=== PATIENT | male | born 1995 | race Caucasian/White ===

== ENCOUNTER 2021-02-12 21:07 | Inpatient (IN) | payer OTHER, SELFPAY ==
[2021-02-12] VITALS (9 sets, daily range): BP systolic 98–128; BP diastolic 80–97; PULSE 60–161; RESP 15–23; O2SAT 89–100
--- NOTE | ~2021-02-12 | XR_ITS ---
XR chest 1V portable 02/12/2021 22:50 Indication: Respiratory failure. History of muscular dystrophy Procedure: AP portable chest Comparison: No prior studies for comparison. Findings: Shallow inspiration. Diffuse bilateral airspace disease. Moderate gastric distention. Small left pleural effusion. No pneumothorax. No acute osseous abnormality. Impression: 1: Diffuse bilateral airspace disease which may represent edema or pneumonia. Reviewed, dictated and finalized at location A. Impression: 1: Diffuse bilateral airspace disease which may represent edema or pneumonia.
--- NOTE | ~2021-02-12 | XR_ITS ---
XR chest port-a-cath/central 02/12/2021 23:48 Indication: Central line placement Procedure: AP portable chest Comparison: 02/12/2021 Findings: There is gastric distention. Elevated left diaphragm. Right IJ central line tip in the SVC. Diffuse bilateral airspace disease. No pneumothorax. No acute osseous abnormality. Impression: 1: Diffuse bilateral airspace disease which may represent edema or pneumonia. Reviewed, dictated and finalized at location A. Impression: 1: Diffuse bilateral airspace disease which may represent edema or pneumonia.
--- NOTE | 2021-02-12 21:27 | ECG_ITS ---
Measurements Intervals [place] Rate: 117 P: [place]: 0 QRS: 26 QRSD: 172 T: 194 QT: 357 QTc: 500 Interpretive Statements ATRIAL FIBRILLATION WITH RAPID VENTRICULAR RESPONSE LEFT BUNDLE BRANCH BLOCK BASELINE ARTIFACT- III, AVF, V1-V3 ABNORMAL ECG Electronically Signed On 02-13-2021 6:40:23 CDT by Stewart Frye D.O.
--- NOTE | 2021-02-12 21:33 | PC.NURSE ---
pt being paced by dr sylvester. pt more alert, able to answer questions. now on 4l NC
[2021-02-12 21:43] LABS: Hematocrit 45.2 % (42.0-52.0); Hemoglobin 13.4 g/dL (14.0-18.0); Mean Corpuscular HGB Conc 29.6 g/dl (32-36); Mean Corpuscular Volume 101.1 fl (80-100); Platelet Count Result 370 k/mm3 (150-375); Red Blood Count 4.47 M/mm3 (4.6-6.20); Red Cell Distribution Width 14.2 % (11.5-14.5); White Blood Count 12.3 K/mm3 (4.5-10.0)
--- NOTE | 2021-02-12 21:47 | ED.ARRPALP ---
HPI - Arrhythmia/Palpitations General Chief Complaint: Arrhythmia/Palpitations Stated Complaint: syncope History of Present Illness HPI narrative: 25 yo male w/ h/o muscular dysthrophy brought in by EMS in severe distress. His father was lifting him hup when he became pale and unresponsive. Per EMS venricular rate of 30. They began assisting with ventilation and his mental status improved. History limited by clinical condition. He gets all of his care at [place]. His radiology aide is Dr. Dodd Related Data Home Medications Medication Instructions Recorded Confirmed carvedilol 6.25 mg PO BID 02/12/21 02/12/21 lisinopril 10 mg PO DAILY 02/12/21 02/12/21 prednisone 150 mg PO 2XW 02/12/21 02/12/21 cholecalciferol (vitamin D3) 5,000 unit PO DAILY 02/13/21 02/13/21 [Dialyvite Vitamin D] Allergies Allergy/AdvReac Type Severity Reaction Status Date / Time Penicillins Allergy Mild Unknown Verified 02/12/21 23:27 amoxicillin Allergy Unknown Verified 02/12/21 23:27 clavulanic acid Allergy Unknown Verified 02/12/21 23:27 [From Augmentin] latex Allergy Hives Verified 02/13/21 01:22 metoprolol Allergy Unknown Verified 02/13/21 01:06 Sulfa (Sulfonamide Allergy Unknown Verified 02/12/21 23:27 Antibiotics) Review of Systems Review of Systems: ROS unobtainable: Yes unobtainable due to medical condition PMFSH Past Medical History Medical History (Updated 02/13/21 @ 00:32 by Mark Cardenas MD) Duchenne muscular dystrophy Family History Family History (Updated 02/13/21 @ 00:02 by Mark Cardenas MD) Other Muscular dystrophy Social History Social History (Updated 02/13/21 @ 00:03 by Mark Cardenas MD) Smoking status: Never smoker Alcohol intake: never Substance use: never Living arrangements: with family Gender identity (if verbalized by the patient): Male Exam Const: Nutritional Appearance: obese Other: severe distress. lethargic HENMT: Head: normal to inspection Eyes: Pupils: Equal, round and reactive pupils present Neck: Neck: normal visual inspection Resp: Other: Poor respiratory effort. CTA bilaterally Cardio: Other: No palpable pulses. GI: GI Palp: Yes Soft to palpation Skin: General skin exam: pallor Neuro: Other: responds to voice. Course Vital Signs Vital signs: Vital Signs Respiratory Rate 20 02/12/21 21:04 Blood Pressure 128/90 02/12/21 21:04 Pulse Oximetry 89 L 02/12/21 21:04 Temperature 36.6 C 02/13/21 01:23 Pulse Rate 89 02/13/21 01:23 Respiratory Rate 18 02/13/21 01:23 Blood Pressure 118/94 H 02/13/21 01:23 Pulse Oximetry 97 02/13/21 01:23 Procedures Central Line Placement Right IJ: Central Line Date: 02/13/21 Discussed w/ the patient/family/POA,the placement of a central venous catheter, including its clinical necessity/indication & associated potential risks, benifits and alternatives.: Yes The patient/family/POA understand(s) and acknowledge(s) the need to proceed with central venous catheter insertion as an important element of the patient's clinical management.: Yes Patient Placed on Monitor/Pulse Ox: Yes Max. Sterile Barrier Technique: Caps, large sterile sheet and hand hygiene Central Line Prep: 2% chlorhexidine scrub and sterile drapes applied Technique: US-Guided Local Anesthetic: lidocaine 1% Amount of anesthesia used (mL): 3 Ultrasound Used for Placement: Yes Central Line Lumen Inserted: triple Post Procedure: sutured in place, good blood return, all ports aspirated, flushed, capped and sterile dressing applied Post Procedure X-Ray: tip of catheter in good position and no pneumothorax seen Patient Tolerated Procedure: well and no complications Complications: none MDM - Arrhythmia/Palpitations MDM Narrative Medical decision making narrative: He was in complete heart block with a ventricular rate of 30. No palpable pulses. Bidirecti
[2021-02-12 21:55] LABS: Fractional Inspired Oxygen 36 %; HCO3 VBG 18.9 mEq/l (24.0-30.0); PCO2 VBG 49.7 mmHg (42.0-48.0); PO2 VBG 30.3 mmHg (35.0-45.0)
[2021-02-12 21:57] LABS: pH VBG 7.198 (7.300-7.400)
[2021-02-12 21:58] LABS: Device NASAL CANNULA
--- NOTE | 2021-02-12 22:06 | PCRCNOTE ---
Was unable to draw arterial BG, so verbal order to obtain VBG from Dr. Billy. Results on chart, reported results to Dr. Billy.
[2021-02-12] MEDS: GLUCAGON FOR INJ 1 MG VIAL 2 MG IM (22:09)
[2021-02-12 22:10] LABS: INR 1.2; Prothrombin Time 14.8 Seconds (11.1-14.7)
[2021-02-12] MEDS: SODIUM BICARBONATE 8.4% 50 MEQ/50 ML SYRINGE IV PUSH (22:12)
[2021-02-12 22:15] LABS: Band Neutrophils Percent 5 % (0-6); Eosinophils Absolute Manual 0.12 K/mm3 (0.02-0.5); Eosinophils Percent Manual 1 % (0-4); Lymphocytes Absolute Manual 1.47 K/mm3 (1.1-4.5); Monocytes Absolute Manual 0.24 K/mm3 (0.1-0.90); Monocytes Percent Manual 2 % (3-9); Neutrophils Absolute Manual 10.45 K/mm3 (1.3-6.7); Neutrophils Percent Manual 80 % (46-73); Total Cells Counted 100
[2021-02-12 22:16] LABS: Atypical Lymphocytes Present; Platelet Estimate Adequate (Adequate)
[2021-02-12] MEDS: SODIUM BICARBONATE 8.4% 50 MEQ/50 ML VIAL IV PUSH (22:18)
[2021-02-12] MEDS: fentaNYL CITRATE INJ (*CRX) 100 MCG/2 ML VIAL (22:18)
[2021-02-12 22:23] LABS: Alanine Aminotransferase 77 U/L (4-50); Albumin Level 3.1 g/dL (3.5-5.1); Alkaline Phosphatase 61 U/L (38-126); Anion Gap 13 mmol/L (8-16); Aspartate Amino Transferase 99 U/L (17-59); Bilirubin,Total 1.5 mg/dL (0.2-1.3); Blood Urea Nitrogen 11 mg/dL (9-20); Calcium 8.5 mg/dL (8.4-10.2); Carbon Dioxide 18 mmol/L (22-30); Chloride 106 mmol/L (98-107); Estimated CRCL calculation 288 ml/min; Estimated Glomerular Filt Rate > 60; Glucose 256 mg/dL (65-110); Potassium 4.7 mmol/L (3.4-5.0); Sodium 137 mmol/L (137-145)
[2021-02-12 22:30] LABS: NT Pro B Type Natriuretic Pept 243 pg/mL (5-100); Troponin I 0.043 ng/mL (0.000-0.034)
[2021-02-12 22:38] LABS: D Dimer > 20.00 ug/mL (<0.48)
--- NOTE | 2021-02-12 23:08 | PC.NURSE ---
Dr. Billy and LEBRON Dubon in room with pt. MARK attempting central line placement.
[2021-02-12] MEDS: AMIODARONE 150 MG/D5W 100 ML 150 MG/100 ML BAG 600 MG IV CONT (23:30)
[2021-02-12] MEDS: fentaNYL CITRATE INJ (*CRX) 100 MCG/2 ML VIAL 50 MCG IV PUSH (23:30)
--- NOTE | 2021-02-12 23:34 | PC.NURSE ---
Addendum entered by Kriss Garcia RN 02/12/21 23:34: error. slab lifting supervisor here to see pt. Original Note: slab lifting supervisor here to see .
--- NOTE | 2021-02-12 23:35 | PC.NURSE ---
Gas Or Water Meter Installer in room with pt. Dr. hardin at bedside.
[2021-02-12] MEDS: AMIODARONE 360 MG/D5W 200 ML 360 MG/200 ML BAG 33.33 MG IV CONT (23:45)
--- NOTE | 2021-02-12 23:52 | WPDMODSED ---
Moderate Sedation Note-Pt Data Patient Data Allergies Allergy/AdvReac Type Severity Reaction Status Date / Time Penicillins Allergy Mild Unknown Verified 02/12/21 23:27 amoxicillin Allergy Unknown Verified 02/12/21 23:27 clavulanic acid Allergy Unknown Verified 02/12/21 23:27 [From Augmentin] Sulfa (Sulfonamide Allergy Unknown Verified 02/12/21 23:27 Antibiotics) Home Medications Medication Instructions Recorded Confirmed Type carvedilol 6.25 mg PO BID 02/12/21 02/12/21 History lisinopril 10 mg PO DAILY 02/12/21 02/12/21 History prednisone 150 mg PO 2XW 02/12/21 02/12/21 History Current Medications: Active Medications Amiodarone HCl/Dextrose (Nexterone 360 Mg/D5w 200 Ml) 360 mg in 200 mls @ 33.333 mls/hr IV CONT .Q6H ONE Stop: 02/13/21 05:27 Amiodarone HCl/Dextrose (Nexterone 360 Mg/D5w 200 Ml) 360 mg in 200 mls @ 16.667 mls/hr IV CONT .Q12H YOSEF Sedation/Anesthesia: No previous sedation/anesthesia problems (including family history). Mod Sed Physical Exam Physical Exam Pre Procedural Exam: Normal: Airway Hours since solid foods: 5 Hours since liquid intake: 5 Mallampati Classification: class III Internal Medicine - PN: Obj Da Vital Signs Vital Signs: Vital Signs - 24 hr 02/12/21 21:04 02/12/21 21:30 02/12/21 21:31 Pulse Rate 80 Respiratory Rate 20 23 H Blood Pressure 128/90 110/86 Pulse Oximetry 89 L 95 90 02/12/21 21:42 02/12/21 22:36 02/12/21 23:05 Pulse Rate 60 68 105 H Respiratory Rate 20 18 22 H Blood Pressure 119/91 H 123/97 H 123/97 H Pulse Oximetry 95 100 100 02/12/21 23:27 02/12/21 23:30 02/12/21 23:31 Pulse Rate 129 H 149 H 158 H Respiratory Rate 17 17 15 Blood Pressure 102/80 98/86 L Pulse Oximetry 100 100 99 Meds/Results Medications: Active Medications Generic Name Dose Route Start Last Admin Trade Name Freq PRN Reason Stop Dose Admin Amiodarone HCl/Dextrose 360 mg in 200 mls @ 33.333 mls/hr 02/12/21 23:28 Nexterone 360 Mg/D5w 200 Ml IV CONT 02/13/21 05:27 .Q6H ONE 1 MG/MIN Amiodarone HCl/Dextrose 360 mg in 200 mls @ 16.667 mls/hr 02/13/21 05:40 Nexterone 360 Mg/D5w 200 Ml IV CONT .Q12H YOSEF 0.5 MG/MIN Labs CBC & Chem 7: 02/12/21 21:36 02/12/21 21:52 Labs: Laboratory Results - last 24 hr 02/12/21 02/12/21 02/12/21 21:36 21:52 21:52 WBC 12.3 H RBC 4.47 L Hgb 13.4 L Hct 45.2 MCV 101.1 H MCH 30.0 MCHC 29.6 L RDW 14.2 Plt Count 370 MPV 10.0 Immature Gran % (Auto) Not Reportable Neut % (Auto) Not Reportable Lymph % (Auto) Not Reportable [place] % (Auto) Not Reportable Eos % (Auto) Not Reportable Baso % (Auto) Not Reportable Lymph # (Auto) Not Reportable [place] # (Auto) Not Reportable Eos # (Auto) Not Reportable Baso # (Auto) Not Reportable Abs Immat Gran (auto) Not Reportable Absolute Neuts (auto) Not Reportable Absolute Nucleated RBC Not Reportable Total Counted 100 Neutrophils % (Manual) 80 H Band Neutrophils % 5 Lymphocytes % (Manual) 12.0 L Monocytes % (Manual) 2 L Eosinophils % (Manual) 1 Nucleated RBC % Not Reportable Abs Neuts (Manual) 10.45 H Abs Lymphs (Manual) 1.47 Abs Monocytes (Manual) 0.24 Absolute Eos (Manual) 0.12 Atypical Lymphocytes Present Platelet Estimate Adequate PT 14.8 H INR 1.2 APTT 26.0 D-Dimer > 20.00 H VBG pH VBG pCO2 VBG pO2 VBG HCO3 O2 Delivery Device O2 Liters/Min FiO2 Sodium 137 Potassium 4.7 Chloride 106 Carbon Dioxide 18 L Anion Gap 13 BUN 11 Creatinine 0.40 L Estim Creat Clear Calc 288 Estimated GFR > 60 Glucose 256 H Calcium 8.5 Magnesium Total Bilirubin 1.5 H AST 99 H ALT 77 H Alkaline Phosphatase 61 Troponin I NT-Pro-B Natriuret Pep Total Protein 6.0 L Albumin 3.1 L 02/12/21 02/12/21 21:52 21:52 WBC RBC
--- NOTE | 2021-02-12 23:57 | PM.IMHP ---
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 Patient follows up at [facility] with Neurology, and with Cardiology. He was brought to [facility] after he had an episode of dizziness and presyncope. At baseline, patient needs assistance with mobility. Apparently, patient was found to be in complete heart block in the emergency room, and had transcutaneous pads placed. His EKG showed atrial fibrillation with left bundle branch block morphology . After discussion with the patient and his father, patient was brought to the laborer shaft sinking for temporary pacemaker placement. Chief Complaint: Presyncope Review of Systems Review of Systems: General: fatigue Psychological: Positive for anxiety Ophthalmic: negative for loss of vision ENT: Negative for epistaxis Allergy and immunology: Negative for hives Hematologic and lymphatic: Negative for overt bleeding problems Endocrine: Negative for hot flashes, palpitations Respiratory: Negative for cough, hemoptysis Cardiovascular: positive for mild chest discomfort; dizziness, presyncope, Gastrointestinal: Negative for abdominal pain Musculoskeletal: positive for muscle weakness and joint pains Neurological: positive for generalized weakness Dermatological: Negative for rash PMF Past Medical History Medical History (Updated 02/13/21 @ 00:32 by Mark Cardenas MD) Duchenne muscular dystrophy Family History Family History (Updated 02/13/21 @ 00:02 by Mark Cardenas MD) Other Muscular dystrophy Social History Social History (Updated 02/13/21 @ 00:03 by Mark Cardenas MD) Smoking status: Never smoker Alcohol intake: never Substance use: never Living arrangements: with family Meds Home Medications and Allergies Home Medications Medication Instructions Recorded Confirmed Type carvedilol 6.25 mg PO BID 02/12/21 02/12/21 History lisinopril 10 mg PO DAILY 02/12/21 02/12/21 History prednisone 150 mg PO 2XW 02/12/21 02/12/21 History Allergies Allergy/AdvReac Type Severity Reaction Status Date / Time Penicillins Allergy Mild Unknown Verified 02/12/21 23:27 amoxicillin Allergy Unknown Verified 02/12/21 23:27 clavulanic acid Allergy Unknown Verified 02/12/21 23:27 [From Augmentin] Sulfa (Sulfonamide Allergy Unknown Verified 02/12/21 23:27 Antibiotics) Vital Signs Vital Signs - 24 hr 02/12/21 21:04 02/12/21 21:30 02/12/21 21:31 Pulse Rate 80 Respiratory Rate 20 23 H Blood Pressure 128/90 110/86 Pulse Oximetry 89 L 95 90 02/12/21 21:42 02/12/21 22:36 02/12/21 23:05 Pulse Rate 60 68 105 H Respiratory Rate 20 18 22 H Blood Pressure 119/91 H 123/97 H 123/97 H Pulse Oximetry 95 100 100 02/12/21 23:27 02/12/21 23:30 02/12/21 23:31 Pulse Rate 129 H 149 H 158 H Respiratory Rate 17 17 15 Blood Pressure 102/80 98/86 L Pulse Oximetry 100 100 99 Exam Narrative: PHYSICAL EXAMINATION: GENERAL: Alert, no acute distress MENTAL STATUS: affect appropriate to mood EYES: Extraocular movements intact, pallor EARS: hearing grossly normal NOSE: Normal and patent, no discharge MOUTH: Mucous membranes moist, tongue normal NECK: Supple, no JVD CHEST: clear to auscultation HEART: irregular, distant heart sounds at the time of evaluation ABDOMEN: obese, soft NEUROLOGICAL: Alert, able to talk; generalized muscle weakness MUSCULOSKELETAL: generalized weakness EXTREMITIES: no cyanosis SKIN: no rash on the exposed area, no cyanosis PSYCHIATRIC: appropriate affect H&P: Results Labs Labs: Short CBC 02/12/21 Range/Units 21:36 WBC 12.3 H (4.5-10.0) K/mm3 Hgb 13.4 L (14.0-18.0) g/dL Hct 45.2 (42.0-52.0) % Plt Count 370 (150-375) k/mm3 BM
--- NOTE | 2021-02-12 23:58 | PC.NURSE ---
Report to [facility] labor and delivery nurse RN. Pt escorted to labor and delivery nurse on stretcher by 2x labor and delivery nurse nurses, IV amiodarone infusion, central line, io to left lower leg, and sl x 2, on external pacer.
--- NOTE | 2021-02-13 | PC.NURSE ---
Report to KENISHA Kyle at [place] [address] unit at [phone].
--- NOTE | 2021-02-13 00:40 | PM.TDS ---
Transfer Discharge Sum: Prov Provider Primary care physician: Julio Turner, DS: Admitting Diagnosis Admitting Diagnosis presyncope, bradyarrhythmia Transfer Discharge Sum: Med Medications Active and Home Medications: Home Medications carvedilol 6.25 mg PO BID 02/12/21 [History Confirmed 02/12/21] lisinopril 10 mg PO DAILY 02/12/21 [History Confirmed 02/12/21] prednisone 150 mg PO 2XW 02/12/21 [History Confirmed 02/12/21] Active Medications Amiodarone HCl/Dextrose (Nexterone 360 Mg/D5w 200 Ml) 360 mg in 200 mls @ 33.333 mls/hr IV CONT .Q6H ONE Stop: 02/13/21 05:27 Last Admin: 02/12/21 23:45 Dose: 1 mg/min, 33.33 mls/hr Documented by: Amiodarone HCl/Dextrose (Nexterone 360 Mg/D5w 200 Ml) 360 mg in 200 mls @ 16.667 mls/hr IV CONT .Q12H YOSEF Transfer Discharge Sum: Hosp Hospital Course Hospital course: Evaristo Freeman is a 25 year old male with 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 Patient follows up at [facility] with Neurology, and with Cardiology. He was brought to [facility] after he had an episode of dizziness and presyncope. At baseline, patient needs assistance with mobility. Apparently, patient was found to be in complete heart block in the emergency room, and had transcutaneous pads placed. His EKG showed atrial fibrillation with left bundle branch block morphology . After discussion with the patient and his father, patient was brought to the poultry hatchery laborer for temporary pacemaker placement. Patient had temporary pacemaker placement through right common femoral venous access site under fluoroscopic guidance. Patient routinely receives his care at [facility]. Due to his advanced Duchenne muscular dystrophy and cardiomyopathy, he will be transferred to [facility] for further cardiovascular management /electrophysiology evaluation. I spoke with Dr. Manning (Cardiology) from [facility], and updated him about patient's clinical presentation. Further cardiovascular care as per cardiology team at [facility]. Time Spent with Patient Time attestation: Total time spent providing and/or coordinating transfer services:41 Minutes DS: Data Data Completed and Pending Labs on day of discharge: Labs from last 24 hours 02/12/21 02/12/21 02/12/21 21:52 21:52 21:52 WBC RBC Hgb Hct MCV MCH MCHC RDW Plt Count MPV Immature Gran % (Auto) Neut % (Auto) Lymph % (Auto) [place] % (Auto) Eos % (Auto) Baso % (Auto) Lymph # (Auto) [place] # (Auto) Eos # (Auto) Baso # (Auto) Abs Immat Gran (auto) Absolute Neuts (auto) Absolute Nucleated RBC Total Counted Neutrophils % (Manual) Band Neutrophils % Lymphocytes % (Manual) Monocytes % (Manual) Eosinophils % (Manual) Nucleated RBC % Abs Neuts (Manual) Abs Lymphs (Manual) Abs Monocytes (Manual) Absolute Eos (Manual) Atypical Lymphocytes Platelet Estimate PT 14.8 H INR 1.2 APTT 26.0 D-Dimer > 20.00 H VBG pH 7.198 L* VBG pCO2 49.7 H VBG pO2 30.3 L VBG HCO3 18.9 L O2 Delivery Device Nasal cannula O2 Liters/Min 4.0 FiO2 36 Sodium Potassium Chloride Carbon Dioxide Anion Gap BUN Creatinine Estim Creat Clear Calc Estimated GFR Glucose Calcium Magnesium 2.0 Total Bilirubin AST ALT Alkaline Phosphatase Troponin I 0.043 H* NT-Pro-B Natriuret Pep 243 H Total Protein Albumin 02/12/21 02/12/21 21:52 21:36 WBC 12.3 H RBC 4.47 L Hgb 13.4 L Hct 45.2 MCV 101.1 H MCH 30.0 MCHC 29.6 L RDW 14.2 Plt Count 370 MPV 10.0 Immature Gran % (Auto) Not Reportable Neut % (Auto) Not Reportable Lymph % (Auto) Not Reportable [place] % (Auto) Not Reportable Eos % (Auto) Not Reportable Baso % (Auto) Not
--- NOTE | 2021-02-13 00:42 | P.PCNCC_ITS ---
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 Patient follows up at [facility] with Neurology, and with Cardiology. He was brought to [facility] after he had an episode of dizziness and presyncope. At baseline, patient needs assistance with mobility. Apparently, patient was found to be in complete heart block in the emergency room, and had transcutaneous pads placed. His EKG showed atrial fibrillation with left bundle branch block morphology. After discussion with the patient and his father, patient was brought to the laborer tanbark for temporary pacemaker placement. PROCEDURE NOTE: Patient was brought to laborer tanbark and prepped and draped in the usual standard manner. After local lidocaine, right common femoral artery access was taken with micropuncture needle followed by insertion of a 6 [place] sheath over a 035 wire. A balloon tipped pacemaker was advanced under fluoroscopic guidance into the RV cavity, and pacing thresholds were checked. The pacemaker was programmed at 80 beats per minute. At the time of pacemaker placement, patient was in atrial fibrillation with left bundle branch block with heart rates in 90s to 100s. There were no immediate procedure related complications. CONCLUSIONS: Successful placement of temporary transvenous pacemaker through right common femoral venous access site. PLAN/RECOMMENDATIONS: Patient routinely receives his care at [facility]. Due to his advanced Duchenne muscular dystrophy and cardiomyopathy, he will be transferred to [facility] for further cardiovascular management /electrophysiology evaluation. I spoke with Dr. Manning (Cardiology) from [facility], and updated him about patient's clinical presentation. Further cardiovascular care as per cardiology team at [facility]. This document was completed by using [email or web address] Fluency Direct speech recognition software, therefore, retail salesperson variances may occur.
[2021-02-13 01:10] VITALS: O2SAT 100
[2021-02-13 01:23] VITALS: BP 118/94; PULSE 89; RESP 18; TEMP 36.6; O2SAT 97
--- NOTE | 2021-02-13 01:25 | PC.NURSE ---
Patient telemetry strip at 0123 shows V-pac.ing with a HR of 87
--- NOTE | 2021-02-13 01:52 | ADMIMU ---
This patient, Evaristo Freeman placed in Intensive Care Unit-9 for extended recovery at 0106. Patient/family oriented to hospital policies and general routines including ID bracelet, bed and alarms, visiting hours, pain management, procedures, bathroom and other care routines, personal items, smoking policy, room service/diet, and visiting hours. Information on how to activate the Rapid Response Team has been discussed. Patient/Family are encouraged to report perceived risks to care and to ask questions if they do not understand what they are told or what they should do.
--- NOTE | 2021-02-13 01:53 | PC.NURSE ---
David here at 0140 to transfer patient to [facility]. [facility] called and report given to Anabella DE.
== END 2021-02-13 01:55 | disposition short-term general hospital (02) | DRG 201 ==
LOC: ANHED 21:59 → ANHCATHLAB 02-13 00:11 → ANHICU 02-13 03:08
PROVIDERS: Admitting Provider Internal Medicine Cardiovascular Disease; Emergency Provider Emergency Medicine; PCP Internal Medicine Gastroenterology; Visit Provider Internal Medicine Cardiovascular Disease
PROC: (CPT 33210; principal; 2021-02-12 23:05)
DX: I49.8 Other specified cardiac arrhythmias (principal); G71.01 Duchenne or Becker muscular dystrophy; J96.10 Chronic respiratory failure, unspecified whether with hypoxia or hypercapnia; I42.9 Cardiomyopathy, unspecified; I44.2 Atrioventricular block, complete; R55 Syncope and collapse; Z79.899 Other long term (current) drug therapy
CPT/HCPCS: 33210; 36415; 36556; 36600; 71045; 80053; 82803; 83735; 83880; 84484; 85025; 85380; 85610; 85730; 93005; 96372; 96374; 96375; 96376; 99291; C1751; C1894; J0171; J0282; J0461; J1610; J1644; J2001; J3010; J7040; J7060; J7120

== ENCOUNTER 2021-06-29 09:12 | Outpatient (CLI) | payer OTHER, SELFPAY ==
--- NOTE | ~2021-06-29 | XR_ITS ---
XR knee LT 3V DATE: 06/29/2021 10:05 INDICATION: Left knee pain and popping TECHNIQUE: 4 views COMPARISON: None FINDINGS: There is cortical thinning and prominent diffuse osteopenia. No recent fracture or dislocation or joint effusion, periosteal reaction or bone destruction is detec doug. IMPRESSION: Cortical thickening and prominent diffuse osteopenia Reviewed, dictated and finalized at location B. EAR POWERPLANT MECHANIC HELPER
--- NOTE | ~2021-06-29 | US_ITS ---
US soft tissue groin RT 06/29/2021 09:46 Indication: Right inguinal pain Procedure: High-resolution ultrasound of the right groin Comparison: No prior studies for comparison. Findings: Normal heterogeneous echotexture without focal solid or cystic mass. No evidence for hernia . Impression: 1: Normal soft tissue ultrasound of the right groin. No discrete mass, fluid collection or hernia. Reviewed, dictated and finalized at location A. ANALYTICS Impression: 1: Normal soft tissue ultrasound of the right groin. No discrete mass, fluid co llection or hernia.
== END 2021-06-29 09:13 | disposition home or self-care (01) ==
LOC: ANHIMG 09:22
PROVIDERS: PCP Internal Medicine Gastroenterology; Visit Provider Internal Medicine Gastroenterology
DX: R10.2 Pelvic and perineal pain (principal); M85.852 Other specified disorders of bone density and structure, left thigh
CPT/HCPCS: 73562; 76882

== ENCOUNTER 2022-07-18 09:01 | Emergency (ER) | payer OTHER, SELFPAY ==
[2022-07-18 09:12] VITALS: BP 92/48; PULSE 99; RESP 16; TEMP 36.5; O2SAT 99
--- NOTE | 2022-07-18 09:18 | ED.EAR ---
HPI - Ear Problem General Chief complaint: Ear Stated complaint: right ear pain Time Seen by Provider: 07/18/22 09:19 Source: patient, RN notes reviewed and old records reviewed Mode of arrival: ambulatory Limitations: no limitations History of Present Illness HPI Narrative: 27-year-old male presents to the [facility] with right ear pain. Decreased hearing to the ear for about a week. Mom states for the last 2 days has been using a earwax remover with no improvement. Related Data Home Medications Medication Instructions Recorded Confirmed carvedilol 6.25 mg tablet 6.25 mg PO BID 02/12/21 07/18/22 lisinopril 10 mg tablet 10 mg PO DAILY 02/12/21 07/18/22 prednisone 50 mg tablet 150 mg PO 2XW 02/12/21 07/18/22 cholecalciferol (vitamin D3) 125 5,000 unit PO DAILY 02/13/21 07/18/22 mcg (5,000 unit) capsule (Dialyvite Vitamin D) Allergies Allergy/AdvReac Type Severity Reaction Status Date / Time Penicillins Allergy Mild Unknown Verified 07/18/22 09:06 amoxicillin Allergy Unknown Verified 07/18/22 09:06 clavulanic acid Allergy Unknown Verified 07/18/22 09:06 [From Augmentin] latex Allergy Hives Verified 07/18/22 09:06 metoprolol Allergy Unknown Verified 07/18/22 09:06 Sulfa (Sulfonamide Allergy Unknown Verified 07/18/22 09:06 Antibiotics) Review of Systems Review of Systems: All systems reviewed & are unremarkable except as noted in HPI and below Constitutional: Constitutional: Reports no additional constitutional complaints Eyes: Eyes: Reports no additional eye complaints ENT: Reports as per HPI Cardiovascular: Cardiovascular: Reports no additional cardiovascular complaints, Denies chest pain and Denies dyspnea Respiratory: Respiratory: Reports no additional respiratory complaints, Denies chest congestion, Denies cough and Denies dyspnea Gastrointestinal: Gastrointestinal: Reports no additional gastrointestinal complaints, Denies abdominal pain, Denies nausea and Denies vomiting Musculoskeletal: Musculoskeletal: Reports no additional musculoskeletal complaints Integumentary/Breasts: Skin/Breast: Reports system reviewed and no additional complaints, except as docu Neurologic: Reports system reviewed and no additional complaints, except as documented Psychiatric: Psychiatric: Reports no additional psychiatric complaints Allergic/Immunologic: Allergic/Immunologic: Reports no additional allergic/immunologic complaints PMFSH Past Medical History Medical History Duchenne muscular dystrophy Family History Family History Other Muscular dystrophy Social History Social History Smoking status: Never smoker Alcohol intake: never Substance use: never Gender identity (if verbalized by the patient): Male Comments At the time of my signature, I reviewed and agree with the nursing past medical, surgical, social, and family history. There is no relevant family history pertinent to the patient complaint. Exam Const: General: cooperative, healthy appearing, comfortable, no acute distress, well developed, alert and well nourished Nutritional Appearance: well nourished and obese Orientation/consciousness: patient oriented x3 Limitations: no limitations Other: Wheelchair-bound HENMT: Head: normal to inspection Ears: hearing grossly normal bilaterally, external ears normal, Abnormal EAC present cerumen impaction on the right and TM abnormal Face/Nose/Sinus: Normal external nose present, Normal nares present, Normal nasal mucous membranes and turbinates present and normal facial exam Face and sinus: normal facial exam Mouth: Yes Normal oral and palatal mucosa present, Yes lip normal and Yes moist mucous membranes Throat: posterior oropharynx normal and uvula midline Eyes: General: appearance normal, both eyes and all relate
== END 2022-07-18 09:55 | disposition home or self-care (01) ==
PROVIDERS: Emergency Provider Nurse Practitioner; PCP Internal Medicine Gastroenterology
DX: H61.21 Impacted cerumen, right ear (principal); G71.01 Duchenne or Becker muscular dystrophy
CPT/HCPCS: 69210; 99213; G0463

== ENCOUNTER 2023-03-02 19:53 | Inpatient (IN) | payer OTHER, SELFPAY ==
--- NOTE | ~2023-03-02 | XR_ITS ---
EXAMINATION: XR chest 1V portable DATE: 03/02/2023 20:42 INDICATION: Increasing shortness of breath TECHNIQUE: frontal view of the chest was obtained. COMPARISON: Chest radiograph dated 02/12/2021 FINDINGS: Again seen is elevation of the left hemidiaphragm. Gradient of basilar predominant hazy airspace opac ities in the right mid to lower lung consistent with small posterior layering pleural effusion. There is also a small to moderate-sized left pleural effusion with blunting at the costophrenic angle and tracking on the lateral margin of the left mid to upper lung and over the apex. No pneumothorax. Hear t size is within normal limits for AP technique. Implantable nurse monitoring project over the midthor acic spine. Indeterminate calcified nodules project over the bilateral upper lung zones. Moderate tho racic dextroscoliosis. IMPRESSION: 1. New small right and small to moderate-sized left pleural effusions with associated bibasilar atele ctasis although pneumonia not excludable. 2. Chronic elevation of the left hemidiaphragm. Reviewed, dictated and finalized at location A. IMPRESSION: 1. New small right and small to moderate-sized left pleural effusions with asso ciated bibasilar atelectasis although pneumonia not excludable. 2. Chronic elevation of the left hemidiaphragm.
--- NOTE | ~2023-03-02 | CT_ITS ---
EXAMINATION: CT chest abdomen pelvis w con DATE: 03/02/2023 22:41 INDICATION: Abdominal pain TECHNIQUE: Computed tomography (CT) of the chest, abdomen, and pelvis was performed with 100 mL Omnip aque-350 intravenous contrast. Automated exposure control and iterative reconstruction technique were employed. The dose-length product was 1684.19 mGy-cm. COMPARISON: None FINDINGS: CHEST CT: 70 degree thoracolumbar dextroscoliosis and associated chest wall deformity and elevation of the left and right diaphragm resulting in decreased lung volumes. There is further compromised by small to mo derate-sized bilateral pleural effusions with collapse of the left lower lobe, partial collapse of th e right lower lobe and discoid atelectasis at the left upper lobe and lingula. No pneumonia, pulmonar y edema or pneumothorax. Heart size is normal with mass effect from the sternum upon the anterior mar gin of the heart and with compression of the left atrium. Minimal posterior thoracic spine resulting from the chest wall deformity. There is relative right ventricular enlargement. No pericardial effusi on. Thoracic aorta is normal in caliber with no dissection. There is an implanted electronic device p ositioned along the pulmonary outflow tract, likely in the adjacent pericardial fat. No pathologicall y enlarged thoracic lymphadenopathy. ABDOMEN/PELVIS CT: Liver, gallbladder, spleen, pancreas and, bilateral adrenal glands and kidneys are normal. Bladder is normal. Bowels including the appendix are normal with no obstruction. No free intraperitoneal gas or fluid. No pathologically enlarged abdominal or pelvic lymphadenopathy. Severe fatty atrophy of all t he visualized musculature in the chest abdomen and pelvis and proximal extremities. IMPRESSION: 1. Small to moderate-sized bilateral pleural effusions with associated compressive atelectasis includ ing complete left lower lobe collapse and partial right lower lobe collapse. 2. No acute intra-abdominal/pelvic process. 3. Prominent thoracolumbar dextroscoliosis and extensive severe skeletal muscle atrophy consistent wi th known history of Duchenne's muscular dystrophy. Reviewed, dictated and finalized at location A. IMPRESSION: 1. Small to moderate-sized bilateral pleural effusions with associated compress joe atelectasis including complete left lower lobe collapse and partial right l ower lobe collapse. 2. No acute intra-abdominal/pelvic process. 3. Prominent thoracolumbar dextroscoliosis and extensive severe skeletal muscle atrophy consistent with known history of Duchenne's muscular dystrophy.
--- NOTE | ~2023-03-02 | US_ITS ---
EXAMINATION: US thoracentesis DATE: 03/03/2023 14:02 INDICATION: Pleural effusion TECHNIQUE: The procedure and its risks and benefits were discussed with the patient. Potential risks discussed included bleeding, infection, and pneumothorax. The patient understood the risks and agreed to proceed. The skin was prepped and draped in sterile fashion. 1% lidocaine was used for local anes thesia. Under ultrasound guidance, a 5 Fr catheter with trochar was into the left posterior chest wal l towards a small left pleural effusion. The needle and catheter were unable to be clearly visualized as it was advanced deeper into the chest wall due to primarily to patient body habitus. Given the po or visualization as well as the small size of the left pleural effusion the procedure was terminated due to the increased risk of complication. The needle was removed and a sterile bandage was applied. There were no immediate complications. FINDINGS: Ultrasound images demonstrate a small left pleural effusion. IMPRESSION: 1. Attempted ultrasound-guided thoracentesis which was terminated prior to transgressing the pleura d ue to the poor visualization of the needle tip as it was advanced into the deeper chest wall. Reviewed, dictated and finalized at location A. IMPRESSION: 1. Attempted ultrasound-guided thoracentesis which was terminated prior to seo sgressing the pleura due to the poor visualization of the needle tip as it was advanced into the deeper chest wall.
[2023-03-02 20:04] VITALS: BP 94/71; PULSE 117; RESP 23; TEMP 36.4; O2SAT 95
--- NOTE | 2023-03-02 20:04 | ECG_ITS ---
Measurements Intervals [place] Rate: 119 P: 26 NM: 158 QRS: 264 QRSD: 149 T: 56 QT: 397 QTc: 559 Interpretive Statements SINUS TACHYCARDIA RIGHT AXIS DEVIATION [QRS AXIS > 100] INTRAVENTRICULAR CONDUCTION DELAY [130+ ms QRS DURATION] LATERAL MYOCARDIAL INFARCTION , OF INDETERMINATE AGE [40+ ms Q WAVE AND/OR ST/T ABNORMALITY IN I/aVL/V5/V6] INFERIOR MYOCARDIAL INFARCTION , POSSIBLY ACUTE [40+ ms Q WAVE AND/OR ST/T ABNORMALITY IN II/aVF] ACUTE CO COMPARED TO ECG 02/12/2021 23:25:49 SINUS TACHYCARDIA NOW PRESENT INTRAVENTRICULAR CONDUCTION DELAY NOW PRESENT MYOCARDIAL INFARCT FINDING NOW PRESENT Electronically Signed On 03-03-2023 11:36:11 CDT by Britton Fuller MD
--- NOTE | 2023-03-02 20:23 | ED.GENADULT ---
HPI - General Adult General Chief complaint: Unspecified <Rocky Diego MD - Last Filed: 03/12/23 11:55> Stated complaint: sob, cp, ab pain, difficulty sleeping and eating <Rocky Diego MD - Last Filed: 03/12/23 11:55> Time Seen by Provider: 03/02/23 20:14 <Rocky Diego MD - Last Filed: 03/12/23 11:55> History of Present Illness HPI narrative: 27-year-old male presented to the emergency department for evaluation of abdominal pain, shortness of breath and heartburn. Patient is a Duchenne's patient does have a history of bradycardia arrhythmia and does have a pacemaker in place. Patient typically follows up at [facility] for his Duchenne's muscular dystrophy. Patient states that he has no chest pain heartburn or her pressure at this time. Patient is complaining of some shortness of breath and some abdominal pain. <Rocky Diego MD - Last Filed: 03/12/23 11:55> Related Data Home medications: Home Medications Medication Instructions Recorded Confirmed carvedilol 6.25 mg tablet 6.25 mg PO BID 02/12/21 03/03/23 lisinopril 10 mg tablet 10 mg PO DAILY 02/12/21 03/03/23 prednisone 50 mg tablet 150 mg PO 2XW 02/12/21 03/03/23 cholecalciferol (vitamin D3) 125 5,000 unit PO DAILY 02/13/21 03/03/23 mcg (5,000 unit) capsule (Dialyvite Vitamin D) <Rcoky Diego MD - Last Filed: 03/12/23 11:55> Allergies/adverse reactions: Allergies Allergy/AdvReac Type Severity Reaction Status Date / Time Penicillins Allergy Mild Unknown Verified 03/02/23 21:02 amoxicillin Allergy Unknown Verified 03/02/23 21:02 clavulanic acid Allergy Unknown Verified 03/02/23 21:02 [From Augmentin] latex Allergy Hives Verified 03/02/23 21:02 metoprolol Allergy Unknown Verified 03/02/23 21:02 Sulfa (Sulfonamide Allergy Unknown Verified 03/02/23 21:02 Antibiotics) <Rocky Diego MD - Last Filed: 03/12/23 11:55> Review of Systems Review of Systems: All systems reviewed & are unremarkable except as noted in HPI and below <Rocky Diego MD - Last Filed: 03/12/23 11:55> FORMERLY [facility], [facility] Past Medical History Medical History: Medical History (Updated 03/03/23 @ 16:15 by Basilio Cooper MD) Cardiomyopathy Chronic respiratory failure with hypoxia, on home oxygen therapy Complete heart block (02/2021) Status post permanent pacemaker placement. Duchenne muscular dystrophy <Rocky Diego MD - Last Filed: 03/12/23 11:55> Surgical History Surgical History: Surgical History (Updated 03/03/23 @ 13:18 by Jumana Freire PA-C) History of permanent cardiac pacemaker placement (02/2021) <Rocky Diego MD - Last Filed: 03/12/23 11:55> Family History Family History: Family History (Updated 03/03/23 @ 13:54 by Yu Brownlee RN) Grandparent Heart disease Other Muscular dystrophy <Rocky Diego MD - Last Filed: 03/12/23 11:55> Social History Social History: Social History (Updated 03/03/23 @ 13:23 by NADEEN GomesC) Social History: Surrogate medical decision maker: Rose Freeman, mother. Code status: Do not resuscitate. Smoking status: Never smoker Second hand tobacco smoke exposure: No Alcohol intake: never Substance use: never Substance use type: does not use Lack of Transportation: No Lack of Food: Never True Current Housing: I Have Housing Concerned About Future Housing: No Difficulty Paying Gas/Electric Bills: No Difficulty Paying for Meds: No Currently Unemployed: No Education: Decline to Answer Difficulty w/ Childcare or Family Care: No Living arrangements: with family Spiritual care concerns: No <Rocky Diego MD - Last Filed: 03/12/23 11:55> Exam Narrative: APPEARANCE: Well appearing, no pain, no distress, well-nourished. HEAD: normocephalic, atraumatic. EYES: PERRLA/EOMI, conjunctivae clear. NOSE: Normal no drainage EARS:TMS clear with good light reflex. THROAT: Pharynx
[2023-03-02 21:24] VITALS: BP 101/82; PULSE 112; RESP 33; O2SAT 94
[2023-03-02 21:25] LABS: Basophils Percent Auto 0.3 % (0.2-1.2); Eosinophils Absolute Auto 0.2 K/mm3 (0-0.3); Eosinophils Percent Auto 1.8 % (0-4.4); Hematocrit 52.6 % (42.0-52.0); Hemoglobin 16.7 g/dL (14.0-18.0); Immature Granulocyte Absolute 0.07 K/mm3 (0.00-0.031); Immature Granulocyte Percent A 0.5 % (0-0.5); Lymphocytes Percent Auto 15.4 % (18.3-44.2); Mean Corpuscular HGB Conc 31.7 g/dl (32-36); Mean Corpuscular Hemoglobin 30.4 pg (26-34); Mean Corpuscular Volume 95.6 fl (80-100); Mean Platelet Volume 10.5 fl (7.4-10.4); Monocytes Absolute Auto 1.5 K/mm3 (0.1-0.6); Monocytes Percent Auto 11.2 % (2.6-8.5); Neutrophils Absolute Auto 9.2 K/mm3 (1.3-6.7); Neutrophils Percent Auto 70.8 % (45.5-73.1); Platelet Count Result 145 k/mm3 (150-375); Red Cell Distribution Width 15.4 % (11.5-14.5)
[2023-03-02 21:36] LABS: Prothrombin Time 13.7 Seconds (11.1-14.7)
[2023-03-02 21:37] LABS: Partial Thromboplastin Time 25.3 SECONDS (22.3-36.8)
[2023-03-02 21:45] LABS: Lactic Acid Reflex 1.3 mmol/L (0.7-2.0)
[2023-03-02 22:00] VITALS: BP 86/76; PULSE 110; RESP 24; O2SAT 94
[2023-03-02 22:02] LABS: Influenza A QL RT-PCR Negative (Negative); Influenza B QL RT-PCR Negative (Negative); RSV RNA, RT-PCR Negative (Negative); SARS-CoV-2 RNA PCR Negative (Negative)
[2023-03-02 22:06] LABS: Alanine Aminotransferase 99 U/L (6-50); Albumin Level 3.4 g/dL (3.5-5.1); Alkaline Phosphatase 55 U/L (38-126); Anion Gap 5 mmol/L (8-16); Aspartate Amino Transferase 48 U/L (17-59); Bilirubin,Total 2.5 mg/dL (0.2-1.3); Blood Urea Nitrogen 5 mg/dL (9-20); Calcium 8.5 mg/dL (8.4-10.2); Carbon Dioxide 30 mmol/L (22-30); Chloride 90 mmol/L (98-107); Estimated CRCL calculation 503 ml/min; Estimated Glomerular Filt Rate > 60; Glucose 109 mg/dL (65-110); Lipase 46 U/L (23-300); NT Pro B Type Natriuretic Pept 1850 pg/mL (19.9-100); Potassium 4.1 mmol/L (3.4-5.0); Sodium 125 mmol/L (137-145); Troponin I 0.045 ng/mL (0.000-0.034)
--- NOTE | 2023-03-02 22:07 | ECG_ITS ---
Measurements Intervals [place] Rate: 124 P: 22 DC: 138 QRS: 262 QRSD: 166 T: 71 QT: 382 QTc: 549 Interpretive Statements SINUS TACHYCARDIA INTRAVENTRICULAR CONDUCTION DELAY [130+ ms QRS DURATION] POSSIBLE RIGHT VENTRICULAR HYPERTROPHY [SOME/ALL OF: PROMINENT R IN V1, LATE TRANSITION, RAD, YORDAN, SSS] INFERIOR MYOCARDIAL INFARCTION , OF INDETERMINATE AGE [40+ ms Q WAVE AND/OR ST/T ABNORMALITY IN II/aVF] ANTEROLATERAL MYOCARDIAL INFARCTION , OF INDETERMINATE AGE [40+ ms Q WAVE IN I/aVL/V3- V6] COMPARED TO ECG 03/02/2023 20:08:06 NO SIGNIFICANT CHANGES Electronically Signed On 03-03-2023 11:38:26 CDT by Britton Fuller MD
[2023-03-02 23:00] VITALS: BP 86/72; PULSE 123; RESP 24; O2SAT 94
[2023-03-03] VITALS (30 sets, daily range): BP systolic 89–153; BP diastolic 67–111; PULSE 99–127; RESP 2–35; TEMP 36.7–36.9; O2SAT 85–100; BMI 29.0
--- NOTE | 2023-03-03 00:20 | PC.NURSE ---
This RN was contacted by Landy at [facility] transfer center about transferring patient. pt report was given and transfer process was started.
[2023-03-03 00:38] LABS: Appearance Urine Clear (Clear); Bilirubin Urine Negative (Negative); Blood Urine Negative (Negative); Color Urine Yellow (Yellow); Glucose Urine UA Negative (Negative); Ketones Urine Negative (Negative); Leukocyte Esterase Ur Negative LEU/UL (Negative); Nitrate Urine Negative (Negative); Protein Urine Negative (Negative); Specific Grav Ur 1.012 (1.001-1.035)
[2023-03-03 01:15] LABS: Add Urine Microscopic? NO
[2023-03-03] MEDS: SODIUM CHLORIDE 0.9% IV 1,000 ML 250 ML IV CONT (01:25)
[2023-03-03] MEDS: carvediloL 6.25 MG TABLET PO (08:02)
[2023-03-03] MEDS: predniSONE 20 MG TABLET 140 MG PO (08:02)
[2023-03-03] MEDS: predniSONE 10 MG TABLET PO (08:02)
[2023-03-03] MEDS: PANTOPRAZOLE SODIUM IV 40 MG VIAL IV PUSH (10:01)
[2023-03-03] MEDS: BELLADONNA ALK/PHENOB ELIX 10 ML, MAG HYDROX/ALUMINUM HYD/SIMETH 30 ML, LIDOCAINE HCL 2... PO (10:01)
[2023-03-03 10:27] LABS: Alveolar/Arterial O2 Gradient 29.8 mmHg; Base Excess ABG 4.8 mEq/l (+/-2.0); Fractional Inspired Oxygen 21 %; Oxygen Content ABG 20.4 %vol (16.0-22.0); Oxygen Saturation ABG 90.2 % (95.0-100.0); Oxyhemoglobin 88.8 % THb (90.0-100.0); PCO2 ABG 51.1 mmHg (35.0-45.0); PO2 ABG 58.7 mmHg (80.0-100.0); Total Hemoglobin 16.4 g/dL (12.0-18.0); pH ABG 7.401 (7.350-7.450)
[2023-03-03 10:29] LABS: Device ROOM AIR; Modified Allen's Test Pass; Site Drawn RIGHT RADIAL
--- NOTE | 2023-03-03 12:23 | WPDCNINT ---
Assessment and Plan Assessment and plan (1) Breath shortness: Code(s): R06.02 - Shortness of breath Status: Acute Assessment and Plan: shortness of breath, sore throat, heart burn. pt does have a hx of GERD - continue PPI - Pt refused throat swab as he says he may vomit - no fevers, normal WBC - B/l pleural effusions on CT chest - will require thoracentesis (2) Bilateral pleural effusion: Code(s): J90 - Pleural effusion, not elsewhere classified Status: Acute Assessment and Plan: as above (3) Duchenne muscular dystrophy: Code(s): G71.01 - Duchenne or Vizcarra muscular dystrophy Status: Acute Assessment and Plan: Pt follows with neurology at [facility] (4) Cardiomyopathy: Code(s): I42.9 - Cardiomyopathy, unspecified Status: Acute Assessment and Plan: continue coreg and lisinopril Plan DVT prophylaxis:SCDs Stress ulcer prophylaxis:protonix Nutrition: heart healthy diet Code Status: DNR Critical Care Time Spent: 46 minutes D/w with pt and mother at bedside and updated them on patients condition and plan of care. Pt has been accepted and has a bed and will be transferred to [facility] Due to a high probability of clinically significant, life threatening deterioration, the patient required my highest level of preparedness to intervene emergently and I personally spent this critical care time directly and personally managing the patient. This critical care time included obtaining a history; examining the patient; pulse oximetry; ordering and review of studies; arranging urgent treatment with development of a management plan; evaluation of patient's response to treatment; frequent reassessment; and discussions with other providers. It was exclusive of separately billable procedures and treating other patients and teaching time. Please see Assessment and Plan section and the rest of the note for further information on patient assessment and treatment This dictation may have been done utilizing a voice recognition system. Attempts have been made to correct errors. However, there may be uncorrected grammatical, spelling, and recognitions errors present. 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 Patient states that he has been having the symptoms for a while, he takes bland diet, complaining of somewhat diarrhea. WBC count was 13.0, hemoglobin 16.7, platelets of 145. INR of 1.0. ABG this morning showed pH of 7.40/51/58/31/90% on room air. Sodium was 125, potassium was 4.1, CO2 is 30, BUN 5, creatinine 0.20, blood sugars are 109. Total bilirubin 2.5, AST 48, ALT 99, troponin 0.045--> 0.040, BNP of 1850. UA is negative. Patient is negative for influenza, RSV and SARS-CoV-2 PCR. 03/02/2023 chest x-ray showed: New small right and small to moderate-sized left pleural effusions with associated bibasilar atelectasis although pneumonia not excludable. Chronic elevation of the left hemidiaphragm. 03/02/2023 CT scan of the chest abdomen and pelvis: Small to moderate-sized bilateral pleural effusions with associated compressive atelectasis including complete left lower lobe collapse and partial right lower lobe collapse. No acute intra-abdominal/pelvic process. Prominent thoracolumbar dextroscoliosis and extensive severe skeletal muscle atrophy consistent with known history of Duchenne's muscular dystrophy. Patient is awaiting a bed at [facility] weighs been excepted. Pt seen and examined, is awake, pleasant male,
--- NOTE | 2023-03-03 12:44 | PC.NURSE ---
Molly with [facility] called at 1231. All updates given including labs, testing and vital signs. No bed available at this time.
[2023-03-03] MEDS: LEVALBUTEROL NEB 1.25 MG/3 ML 0.63 MG INHALATION (12:48)
[2023-03-03] MEDS: IPRATROPIUM BR 0.02% INH SOLN 0.5 MG/2.5 ML VIAL INHALATION (12:48)
--- NOTE | 2023-03-03 12:48 | PC.NURSE ---
Molly with [facility] transfer center called at 1240. Bed now available for patient. Patient to go to [facility] room 9231 bed #2.
[2023-03-03] MEDS: ACETYLCYSTEINE 20% INHAL SOLN 800 MG/4 ML VIAL 200 MG INHALATION (12:49)
--- NOTE | 2023-03-03 13:24 | PM.TDS ---
Transfer Discharge Sum: Prov Provider Date of admission: 03/03/23 14:00 SAME-DAY ADMISSION AND TRANSFER Primary care physician: Julio Turner, Admitting clinician: Sam Collier MD Consults: 03/03/23 10:22 Consult to Physician Routine Comment: Consulting Provider: Michelle Romero Reason for consultation: Acute respiratory failure Has provider been notified: Yes Attending physician on discharge: Sam Collier Discharging clinician: Jumaan Freire Receiving physician/facility: [facility]. DS: Admitting Diagnosis Discharge Date 03/03/2023 Admitting Diagnosis HISTORY AND PHYSICAL Chief complaint: Shortness of breath and heartburn. History of the present illness: This is a very pleasant 27-year-old male with Duchenne muscular dystrophy, cardiomyopathy (unknown EF), complete heart block status post permanent pacemaker placement, and chronic respiratory failure on p.r.n. oxygen who presented to the emergency department yesterday evening via private vehicle from home for evaluation of shortness of breath and heartburn. The patient provides the following history. He has not been feeling well for upwards of 2 to 3 weeks. Firstly, he has been experiencing quite a bit of heartburn which is unusual for him. It seems to be worse and night and lying flat. His throat is sore due to the heartburn. His abdomen feels a bit full or bloated and he has occasional belching as well. He trialed Prilosec for 2 weeks without benefit and started Nexium 2 days ago. He has tried Tums and Pepto Bismol which seem to help some but do not provide longstanding relief. No significant nausea or vomiting but he reports spit bubbling up intermittently. He does not and has never swallowed pills and his food in cut into very small bites. He seems to be doing okay with this and he denies overt dysphagia. Every once in awhile his stools are dark but that has been attributed to the Pepto. He takes high dose prednisone twice a week with food and has done so for years. No NSAID, caffeine, or alcohol use. He has no history of esophagitis, gastritis, or peptic ulcers. Regarding the shortness of breath, he has been increasingly short of breath from baseline for several weeks. He has orthopnea and is up and down at night as he is unable to get comfortable. His heart rate typically runs high but he has been feeling it racing recently. He denies chest and pleuritic pain and he has not noticed any significant swelling. He does not have much in the way of a cough. No concerns for aspiration. He has been wearing his oxygen at home which does seem to help his shortness of breath somewhat. In the emergency department: He was afebrile on arrival with a blood pressure of 94/71, pulse 117, respiratory rate 23, and an SpO2 of 95% on room air. SpO2 did drop to the upper 80s and is currently on 3 L nasal cannula. He received 250 mL normal saline bolus with some improvement in his blood pressure. Labs were significant for a WBC count of 13, sodium 125, chloride 90, BUN 5, creatinine 0.20, troponin 0.043, proBNP 1850. He tested negative for influenza, RSV, and COVID. CT of the chest, abdomen, and pelvis shows small to moderate bilateral pleural effusions with associated compressive atelectasis. Transfer was initiated to [facility] where all of his specialists are however a bed has not yet become available and he is being admitted in this setting, pending transfer. Review of Systems: 12 systems were reviewed. No fever but he endorses alternating feelings of hot and cold. No syncope or near syncope. He has been eating a bland diet which has not helped with his heartburn. No diarrhea. No dysuria. No sick contacts. Denies concerns for aspiration. No recent change in medications. Except as documented, all other systems were reviewed and are negative. Medical history: 1. Duchenne muscular dystrophy. 2. Chronic respiratory failure on p.r.n. oxygen. 3.
--- NOTE | 2023-03-03 13:49 | ADMGEN ---
This patient, Evaristo Freeman, was admitted to Intensive Care Unit-1 at 1215. Patient/family oriented to hospital policies and general routines including ID bracelet, bed and alarms, visiting hours, pain management, procedures, bathroom and other care routines, personal items, smoking policy, room service/diet, and visiting hours. Information on how to activate the Rapid Response Team has been discussed. Patient/Family are encouraged to report perceived risks to care and to ask questions if they do not understand what they are told or what they should do.
--- NOTE | 2023-03-03 17:12 | PC.NURSE ---
Report given to KENISHA Ge with [facility] at 1329. All questions answered, medications, and last set of vitals discussed. Follow up call with KENISHA Ge at 1710. Patient now in route to [facility] via [facility] ambulance services. Last set of vitals discussed and any changes to patient condition reported. patient in route to [facility].
== END 2023-03-03 16:58 | disposition short-term general hospital (02) | DRG 143 ==
LOC: ANHED 03-03 09:31 → ANHICU 03-03 11:11
PROVIDERS: Emergency Medicine; Admitting Provider Family Medicine; Emergency Provider Emergency Medicine; PCP Internal Medicine Gastroenterology; Visit Provider Family Medicine
DX: J90 Pleural effusion, not elsewhere classified (principal); J96.21 Acute and chronic respiratory failure with hypoxia; I44.2 Atrioventricular block, complete; I42.9 Cardiomyopathy, unspecified; E87.1 Hypo-osmolality and hyponatremia; R10.13 Epigastric pain; G71.01 Duchenne or Becker muscular dystrophy; K21.9 Gastro-esophageal reflux disease without esophagitis; J98.11 Atelectasis; Z66 Do not resuscitate; Z20.822 Contact with and (suspected) exposure to COVID-19; Z99.81 Dependence on supplemental oxygen; Z95.0 Presence of cardiac pacemaker
CPT/HCPCS: 32555; 36415; 36600; 71045; 71260; 74177; 80053; 81003; 82805; 83605; 83690; 83880; 84484; 85025; 85610; 85730; 87637; 93005; 94640; 96361; 96374; 99285; A9270; C9113; J7030; J7512; Q9967